=== PATIENT | female | born 1950 | race Caucasian/White ===

== ENCOUNTER 2023-06-01 19:13 | Emergency (ER) | payer MEDICARE, OTHER, SELFPAY ==
[2023-06-01 19:18] VITALS: BP 140/75; BP 155/78; PULSE 75; PULSE 84; RESP 18; TEMP 36.5; O2SAT 100; BMI 28.1
--- NOTE | 2023-06-01 19:20 | PC.NURSE ---
Addendum entered by Giacomo Wagoner 06/01/23 22:30: pt denied si/hi. pt reported accidental incident. Original Note: pt arrived via ems states was carrying dishes tripped and cut R. wrist with broken glass. bleeding controlled by ems with bp cuff; on wrist approx 8-10 mins per ems. cuff removed by Dr. Mays upon arrival to assess cut. blood flow/color/warmth return to R. hand. pt denied pain/numbness/tingling. pt medicated per oct. labs drawn. vss. NSR on monitor [address] Mays to bedside for suture 1934; injected site with lidocaine to numb. pt tolerated procedure well. +pulse/color return to normal/ROM. cap <2 secs. site cleaned with gauze and sterile water/abd pad applied/dorota wrap bandage. vss. nsr on monitor. pt denies pain/dizziness. awaiting repeat hgb at 0130 per order.
--- NOTE | 2023-06-01 19:32 | ED_ITS ---
HPI - Wound/Laceration General Chief Complaint: Wound/Laceration Stated Complaint: accidental lac to R wrist while doing dishes Time Seen by Provider: 06/01/23 19:17 Source: patient and family Mode of arrival: EMS Limitations: no limitations History of Present Illness HPI narrative: no PMH not on thinners Tdap is UTD was walking carrying glass dish fell and landed on broken dish had significant bleeding at home where RN neighbor had to hold pressure and EMS could only control bleed with BP tourniquet - blood was pulsatile and spurting. has tingling in left little finger Onset (ago): minute(s) (just prior to arrival ) Location: other (left lateral wrist anterior over ulnar artery distribution) Place: home Patient tetanus UTD: Yes Context: accidental Associated symptoms: pain Treatments prior to arrival: bandage and tourniquet Related Data Previous Rx's Medication Instructions Recorded cephalexin 500 mg capsule 500 mg PO QID 7 days #28 caps 06/02/23 Allergies Allergy/AdvReac Type Severity Reaction Status Date / Time No Known Allergies Allergy Verified 06/01/23 19:28 Review of Systems 2 Review of Systems: Constitutional : No Fever, No Chills, Cardiovascular : No Chest Pain, No SOB Respiratory : No Dyspnea Gastrointestinal : No abdominal pain Musculoskeletal : No Joint Swelling Skin : No rash, positive skin laceration Neuro : No Weakness, No Numbness Psych : No SI/HI PMFSH Past Medical History Attestation statement: The following information was validated with the patient. Medical History No pertinent past medical history Social History Social History (Updated 06/01/23 @ 21:23 by Maddi Mays DO) Patient Tobacco Use Status: Never used Tobacco Smoked in Last 30 Days: No Advance Directives: No Advance Directives Information Provided: Yes Physical Exam 2 Vital Signs: Vital Signs: Last Vital Signs Temp 97.9 F 06/01/23 21:52 Pulse 77 06/01/23 23:39 Resp 16 06/01/23 23:39 BP 114/55 L 06/01/23 23:39 Pulse Ox 99 06/01/23 23:39 O2 Del Method Room Air 06/01/23 23:39 BMI result Body Mass Index 28.1 Appearance: Alert. Oriented X3. anxious mild acute distress. Eyes: Pupils equal, round and reactive to light. ENT: Pharynx normal. Neck: Normal inspection. Neck supple. CVS: Normal heart rate and rhythm. Pulses normal. Respiratory: No respiratory distress. Breath sounds normal. Abdomen: Soft and non-tender. Skin: Skin warm and dry. Normal skin color. Normal skin turgor. Extremities: R wrist 6cm laceration down to subq - pulsatile bleed proximally and brisk ooze distally I can see the muscular artery or at least a branch that is spurting blood, I performed an Prakash test to see if radial artery supplied the hand and it did with full BCR of all digits thumb through 5th digit. 5th finger has diminished sensation on finger, normal ROM Neuro: Oriented X 3. No motor deficit. can feel finger but feels tingling in lateral 5th finger Course Course Course Narrative: BCR in all digits warm and well perfused no bleeding on exam Medications Administered Discontinued Medications Generic Name Dose Route Start Last Admin Trade Name Freq PRN Reason Stop Dose Admin Acetaminophen 650 mg 06/02/23 00:56 06/02/23 01:20 Acetaminophen 325 Mg Tablet PO 06/02/23 00:57 650 mg ONCE ONE Administration Fentanyl 50 mcg 06/01/23 19:28 06/01/23 19:43 Fentanyl Citrate/Pf 100 Mcg/2 Ml Vial IVPUSH 06/01/23 19:29 50 mcg ONCE ONE Administration Protocol Sodium Chloride 1,000 mls @ 999 mls/hr 06/01/23 19:30 06/01/23 20:51 Ns IV 06/01/23 20:30 Infused .Q1H1M DORA Infusion Cefazolin Sodium 1 gm/ Sodium 50 mls @ 100 mls/hr 06/01/23 23:19 06/02/23 00:31 Chloride IV 06/01/23 23:48 Infused ONCE ONE Infusion Ondansetron HCl 4 mg 06/01/23 19:28 06/01/23 19:43 Ondansetron Hcl 4 Mg/2 Ml Vial IVPUSH 06/01/23 19:29 4 mg ONCE ONE Administration Medical Decision Making Medical Decision Making [facility] Narrative: 72 yo female with significant arterial bleeding R arm post fall - concern for ulnar artery or branch already UTD on Tdap will consult vascular but anticipate ED repair after Praaksh test she notes she has numbness in L 5th finger. Will keep close eye on tourniquet time EMS time was 10 min. Differential Diagnosis Differential Diagnoses: The differential diagnosis associated with the presentation includes ulnar artery laceration or branch Admission/Observation Consideration of admission/observation: Escalation of care including admission/observation considered observe repeat CBC, neuro checks. Consult Healthcare Provider Management of the patient was discussed with: Appellate Court Judge (vascular surgery tie off ulnar artery if radial artery functions 3- monofilament) Lab Data MDM Lab Attestation statement: I reviewed the patient's lab results. H/H stable 06/02/23 01:22 06/01/23 19:35 Labs: Lab Results 06/01/23 06/02/23 Range/Units 19:35 01:22 WBC 6.5 6.4 (4.8-10.8) X10*3/uL RBC 3.55 L 3.48 L (4.20-5.50) X10*6/uL Hgb 11.8 L 11.5 L (12.0-16.0) g/dl Hct 35.1 L 34.1 L (37.0-47.0) % MCV 98.9 H 98.0 (80.0-98.0) fL MCH 33.2 H 33.0 (27.0-33.0) pg MCHC 33.6 33.7 (31.0-35.0) g/dl RDW 13.1 13.2 (11.0-16.0) % Plt Count 253 233 (160-400) X10*3/uL MPV 8.9 L 8.8 L (9.4-12.3) fL Immature Gran % (Auto) 0.3 0.5 H (0.0-0.4) % Neut % (Auto) 41.7 L 67.7 (45-73) % Lymph % (Auto) 42.9 H 22.7 (20-40) % Dawes % (Auto) 8.9 6.9 (2-11) % Eos % (Auto) 5.4 H 1.6 (0-4) % Baso % (Auto) 0.8 0.6 (0-2) % Lymph # (Auto) 2.8 1.5 (1.2-4.9) X10*3/uL Dawes # (Auto) 0.6 0.4 (0.1-1.2) X10*3/uL Eos # (Auto) 0.4 0.1 (0.0-0.4) X10*3/uL Baso # (Auto) 0.1 0.0 (0.0-0.2) X10*3/uL Abs Immat Gran (auto) 0.02 0.03 (0.00-0.03) X10*3/uL Absolute Neuts (auto) 2.7 4.3 (2.0-8.3) x10*3/uL Absolute Nucleated RBC 0.000 0.000 (0.0-0.012) X10*3/uL Nucleated RBC % (auto) 0.0 0.0 (0.0-0.2) /100WBC PT 11.0 L (11.1-13.3) SEC INR 0.9 (0.9-1.1) Sodium 139 (135-145) mmol/L Potassium 3.5 (3.3-5.1) mmol/L Chloride 100 (96-108) mmol/L Carbon Dioxide 25 (22-29) mmol/L Anion Gap 18 (12-20) BUN 7 L (9-16) mg/dL Creatinine 0.60 (0.5-1.4) mg/dL Estim Creat Clear Calc 83.6 Estimated GFR > 60 Random Glucose 100 (60-115) mg/dL Calcium 9.1 (8.4-10.2) mg/dL Blood Type A Positive Antibody Screen NEGATIVE Independent Historian Clinical information obtained from an independent historian. History obtained from or confirmed by: Spouse and EMS Prescription Management I considered prescription management with: Antibiotic Procedures Laceration Laceration 1: Site: upper extremity Side (If applicable): right Size (cm): 6 Description: irregular Depth: involves muscle layer (down to artery and subq) Local Anesthetic: lidocaine 1% Amount of anesthesia used (mL): 3 Pre-repair: wound explored Skin layer closed with: nylon Size (cm): 4-0 Number of sutures: 5 Technique: simple, interrupted Subcutaneous layer closed with: other (artery tied off x 2 distal and prox end with 3-0 monofilament) Size: 3-0 Number of sutures: 3 Critical Care Time Critical Care Time Critical Care Time: Yes Total Critical Care Time: 60 Attestation: acute bedside management of arterial bleed with potential for loss of limb and loss of life threatening blood loss. I attest to this time spent taking care of the patient Discharge Plan Discharge Clinical Impression: Laceration Laceration of ulnar artery Qualifiers: Encounter type: initial encounter Laterality: right Qualified Code(s): S55.011A - Laceration of ulnar artery at forearm level, right arm, initial encounter Patient Disposition: Still a Patient Instructions: Laceration (ED) Additional Instructions: an artery needed to be tied off due to laceration of artery - these sutures will remain in place we had to tie it off on 2 ends but you have your radial artery to supply your hand. you may have had an injury to a nerve that will take time to recover. I want you to follow up with our vascular surgeon Dr. Lei call his office Saturday for appointment follow up in 1 to 2 weeks. you should not get any radial artery sticks in your right wrist such as arterial blood gas or cardiac catheterization in the future. take a probiotic while on antibiotics. sutures come out in 10 days. keep clean dry and covered. I would not get it wet for 48 hours and try to avoid soaking it at all. given the injury for the first 4 days keep a bulky dressing in place to protect it and cover with dorota wrap. please limit movements to protect the sutures. RETURN FOR COLD BLUE PAINFUL HAND, REDNESS, YELLOW DRAINAGE, STREAKING REDNESS UP ARM, FEVERS, WEAKNESS OR ANY OTHER CONCERNS. On a cephalosporin?antibiotic, softer bowel movements are to be expected. Call your provider if you move your bowels more than 4 times a day, your bowel movements are almost all liquid, or you get a rash.?? Prescriptions: New cephalexin 500 mg capsule 500 mg PO QID 7 Days Qty: 28 0RF Referrals: Kalen Lei MD [Physician] - (call Saturday for appointment)
[2023-06-01 19:41] LABS: MANUAL DIFF FLAG NO
[2023-06-01 19:43] VITALS: BP 153/81; PULSE 81; RESP 16; O2SAT 96
[2023-06-01] MEDS: fentaNYL citrate/PF 100 MCG/2 ML VIAL 50 MCG IVPUSH (19:43)
[2023-06-01] MEDS: 0.9 % Sodium Chloride 1,000 ML 999 ML IV (19:43)
[2023-06-01] MEDS: ondansetron HCL 4 MG/2 ML VIAL IVPUSH (19:43)
[2023-06-01 19:47] LABS: Basophils Absolute Auto 0.1 X10*3/uL (0.0-0.2); Basophils Percent Auto 0.8 % (0-2); Eosinophils Absolute Auto 0.4 X10*3/uL (0.0-0.4); Eosinophils Percent Auto 5.4 % (0-4); Hematocrit 35.1 % (37.0-47.0); Hemoglobin 11.8 g/dl (12.0-16.0); Imm Gran Abs Auto 0.02 X10*3/uL (0.00-0.03); Imm Gran Pct Auto 0.3 % (0.0-0.4); Lymphocytes Absolute Auto 2.8 X10*3/uL (1.2-4.9); Lymphocytes Percent Auto 42.9 % (20-40); Mean Corpuscular HGB Conc 33.6 g/dl (31.0-35.0); Mean Corpuscular Hemoglobin 33.2 pg (27.0-33.0); Mean Corpuscular Volume 98.9 fL (80.0-98.0); Mean Platelet Volume 8.9 fL (9.4-12.3); Monocytes Absolute Auto 0.6 X10*3/uL (0.1-1.2); Monocytes Percent Auto 8.9 % (2-11); Neutrophils Absolute Auto 2.7 x10*3/uL (2.0-8.3); Neutrophils Percent Auto 41.7 % (45-73); Platelet Count 253 X10*3/uL (160-400); Red Blood Count 3.55 X10*6/uL (4.20-5.50); Red Cell Distribution Width 13.1 % (11.0-16.0); White Blood Count 6.5 X10*3/uL (4.8-10.8)
[2023-06-01 19:54] LABS: Anion Gap 18 (12-20); Blood Urea Nitrogen 7 mg/dL (9-16); Calcium 9.1 mg/dL (8.4-10.2); Carbon Dioxide 25 mmol/L (22-29); Chloride 100 mmol/L (96-108); Creatinine Clr Calc Pharmacy 83.6; Estimated Glomerular Filt Rate > 60; Glucose Random 100 mg/dL (60-115); Potassium 3.5 mmol/L (3.3-5.1); Sodium 139 mmol/L (135-145)
[2023-06-01 19:57] VITALS: BP 149/78; PULSE 82; RESP 14; O2SAT 97
[2023-06-01 19:59] LABS: INTERNATIONAL NORM RATIO 0.9 (0.9-1.1)
[2023-06-01 21:52] VITALS: BP 111/57; PULSE 79; RESP 14; TEMP 36.6; O2SAT 93
[2023-06-01 21:53] VITALS: PULSE 80; RESP 16; O2SAT 100
--- NOTE | 2023-06-01 22:28 | PC.NURSE ---
Pt aox4 resting at the bedside. No apparent distress noted. Reports numbness sensation to the fifth digit of the right hand. No pain. Able to move fingers with no difficulty. Skin warm pink and dry. cap <2 sec. Pt aware of plan.
--- NOTE | 2023-06-01 23:02 | PC.NURSE ---
+ Pulse check to the right hand. Well perfused, + cap refill.
[2023-06-01 23:39] VITALS: BP 114/55; PULSE 77; RESP 16; O2SAT 99
[2023-06-02] MEDS: Acetaminophen 325 MG TABLET 650 MG PO (01:20)
--- NOTE | 2023-06-02 01:29 | PC.NURSE ---
Pt aox4 resting at the bedside. Swelling noted to the right hand. Davi wrap re-wrapped to pts comfort. Dressing in place clean and dry, no blood noted. Radial pulse present, cap refill <2 sec. Skin warm pink and dry. Pt able to move all fingers and extremities. Continues to report fifth digit of right hand numbness. Pain 4/10. Medicated as ordered. Lab drawn and sent. Pt aware of plan of care.
[2023-06-02 01:31] LABS: MANUAL DIFF FLAG NO
[2023-06-02 01:32] LABS: Basophils Percent Auto 0.6 % (0-2); Eosinophils Absolute Auto 0.1 X10*3/uL (0.0-0.4); Eosinophils Percent Auto 1.6 % (0-4); Hematocrit 34.1 % (37.0-47.0); Hemoglobin 11.5 g/dl (12.0-16.0); Imm Gran Abs Auto 0.03 X10*3/uL (0.00-0.03); Imm Gran Pct Auto 0.5 % (0.0-0.4); Lymphocytes Absolute Auto 1.5 X10*3/uL (1.2-4.9); Lymphocytes Percent Auto 22.7 % (20-40); Mean Corpuscular HGB Conc 33.7 g/dl (31.0-35.0); Mean Platelet Volume 8.8 fL (9.4-12.3); Monocytes Absolute Auto 0.4 X10*3/uL (0.1-1.2); Monocytes Percent Auto 6.9 % (2-11); Neutrophils Absolute Auto 4.3 x10*3/uL (2.0-8.3); Neutrophils Percent Auto 67.7 % (45-73); Platelet Count 233 X10*3/uL (160-400); Red Blood Count 3.48 X10*6/uL (4.20-5.50); Red Cell Distribution Width 13.2 % (11.0-16.0); White Blood Count 6.4 X10*3/uL (4.8-10.8)
[2023-06-02 02:25] VITALS: BP 172/86; PULSE 94; RESP 17; TEMP 36.9; O2SAT 97
--- NOTE | 2023-06-02 03:06 | PC.NURSE ---
Woody text received from Dr. Mays for pt to be discharged with a loose cockup wrist splint to protect and support the hand and wrist as pt moves the right hand too much.
[2023-06-02 05:51] VITALS: BP 160/71; PULSE 83; RESP 14; TEMP 36.7; O2SAT 98
== END 2023-06-02 06:22 | disposition home or self-care (01) ==
PROVIDERS: Emergency Provider Emergency Medicine; PCP Family Medicine
DX: S61.511A Laceration without foreign body of right wrist, initial encounter (principal); W01.110A Fall on same level from slipping, tripping and stumbling with subsequent striking against sharp glass, initial encounter; Y93.89 Activity, other specified; Y92.009 Unspecified place in unspecified non-institutional (private) residence as the place of occurrence of the external cause; Y99.9 Unspecified external cause status
CPT/HCPCS: 12042; 36415; 80048; 85025; 85610; 86850; 86900; 86901; 96361; 96365; 96375; 99285; J0690; J2405; J3010

== ENCOUNTER 2023-06-13 14:08 | Outpatient (AMB) | payer MEDICARE, OTHER, SELFPAY ==
--- NOTE | 2023-06-13 14:17 | A.OFFVIS_ITS ---
Intake Vital Signs 06/13/23 14:18 Height 5 ft 4 in Weight 167 lb BMI 28.7 Intake Visit Reasons: Podiatric Physician- lac to R wrist numbness Intake Note: Rosa mccain 73 year old female presents today for an ER follow up of right wrist laceration, DOI 06/01/23. Patient reports that she was walking carrying a glass dish when she fell, landing on the broken dish. Presented to [facility] by ambulance where sutures were applied and referred to orthopedic. Currently having soreness as well as numbness and tingling in her 5th and 4th digit. She is requesting to have her left hand checked out, stating bruising in her hand. Allergies No Known Allergies Allergy (Verified 06/13/23 14:23) HPI Podiatric Physician- lac to R wrist numbness HPI Details 73-year-old female who presents to the [facility] today for an ER follow-up of right wrist injury s/p falling and landing on a broken dish while carrying a glass dish, 06/01/23. She was seen at ED by ambulance where sutures were applied and she was referred to our office. She states she has soreness, numbness and tingling in her 4th and 5th digit. She also c/o occasional electrical sensation in her wrist which radiates to her hand. She has a history of Dupuytren?s disease. [facility] Medical History (Updated 06/14/23 @ 15:45 by Patrice Steinberg PA-C) No pertinent past medical history Surgical History (Updated 06/13/23 @ 14:20 by DIONNE Triana) History of left hip replacement Social History (Updated 06/13/23 @ 14:20 by DIONNE Triana) Patient Tobacco Use Status: Never used Tobacco Current occupational status: retired Current occupation: right hand dominant Review of Systems Const All systems reviewed & are unremarkable except as noted in HPI and below Physical Exam Vital Signs: BMI result Body Mass Index 28.7 Const General: cooperative, healthy appearing, comfortable, no acute distress, well developed and alert Orientation/consciousness: patient oriented x3 HEENT Head: Yes normal to inspection, Yes normocephalic and Yes atraumatic Eyes General: appearance normal, both eyes and all related structures Resp Effort & Inspection: normal respiratory effort and able to speak in complete sentences Cardio Rate: regular rate Peripheral pulses: Peripheral pulses 2+ throughout GI Palpation (GI): Soft to palpation Skin Lesions: no lesions Rashes: no rashes Neuro General: patient oriented x3 Extrem Other: Right wrist: Normal to inspection. She does have a laceration with sutures intact over the ulnar side of wrist approximately 2 inches long. She does have good sensation over the volar aspect of the forearm. She does have decreased sensation in the ulnar side of the hand which extends into the 5th and 4th metacarpal. Full extension and flexion of the digits. There is evidence of Dupuytren?s in line with the ring finger. No flexion contracture noted. 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 I did reassure her that the nerve does appear to be intact given her motor function. It appears she has also lacerated the superficial sensory brance of the ulnar nerve which has caused some sensory deficits but it is unclear if this is long term care social worker, however she does have some light sensation intact so it is reassuring that her symptoms may resolve. This can take up to 3-4 months, at least. She will see me back in 3 weeks for a follow-up, sooner if needed. Patient Instructions: Scribed for Patrice Steinberg PA-C, by Lenny Prado biomedical specialist, on 06/13/2023 at 2:15 PM EST. I, Patrice Steinberg PA-C, have personally reviewed and agree with the information entered by the scribe. 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
[2023-06-13 14:18] VITALS: BMI 28.7
== END 2023-06-13 14:57 | disposition home or self-care (01) ==
PROVIDERS: PCP Family Medicine; Visit Provider Physician Assistant
DX: G56.21 Lesion of ulnar nerve, right upper limb (principal)
CPT/HCPCS: 99203

== ENCOUNTER → 2023-06-13 14:08 | Outpatient (BNVA) | payer MEDICARE, OTHER, SELFPAY | PROVIDERS: PCP Family Medicine; Visit Provider Physician Assistant ==

== ENCOUNTER 2023-07-16 14:24 | Outpatient (AMB) | payer MEDICARE, OTHER, SELFPAY ==
--- NOTE | 2023-07-16 14:31 | A.OFFVIS_ITS ---
Intake Vital Signs 07/16/23 14:41 Height 5 ft 4 in Weight 167 lb BMI 28.7 Intake Visit Reasons: OV-lac to R wrist numbness Intake Note: Rosa a 73 year old female presents today for a follow up of right wrist laceration, DOI 06/01/23. Patient previously seen by TM s/p fall causing her to land on broken glass. She continues to have numbness in her 5th and 4th digit that radiates down the ulnar aspect of palm. She also has concerns of left hand pain and swelling at base of her 2nd and 3rd MCP. Allergies No Known Allergies Allergy (Verified 07/16/23 14:41) HPI OV-lac to R wrist numbness HPI Details The patient is a 73-year-old ciihl-tznf-bhthamnd woman who is seen today with her . On 06/01/2023 she fell onto a broken plate and glass sustaining a laceration to the ulnar aspect of her right distal forearm. There was reportedly rather extensive bleeding, and they ended up tying off the ulnar artery in the emergency department. She has numbness in the ulnar aspect of her hand and does appreciate some clumsiness and weakness in her right hand since the injury. [facility] Medical History (Updated 07/16/23 @ 15:51 by Luzma Glover MD) No pertinent past medical history Surgical History History of left hip replacement Social History Patient Tobacco Use Status: Never used Tobacco Current occupational status: retired Current occupation: right hand dominant Physical Exam Vital Signs: BMI result Body Mass Index 28.7 Const General: cooperative, healthy appearing and no acute distress Orientation/consciousness: oriented to person and oriented to place HEENT Head: Yes normocephalic and Yes atraumatic Eyes EOM: EOMs intact bilaterally Resp Effort & Inspection: normal respiratory effort and able to speak in complete sentences Cardio Jugular venous distension: no JVD Skin General skin exam: turgor normal Rashes: no rashes Neuro General: oriented to person and oriented to place Extrem Other: Evaluation of right Upper Extremity: She has a 2 - 3 cm oblique laceration over the volar ulnar aspect of the patient's right wrist. The laceration is well healed. Interestingly, a Tinel's sign elicited in this area causes an electrical shock sensation that feels like it runs out to the tips of the small and ring fingers. Neuro: Median, radial nerves motor and sensory intact. She has dense numbness in the right small finger, ulnar aspect of the ring finger, and the hypothenar aspect of the palm. She does have a normal sensation in the dorsal ulnar aspect of the right hand in the distribution of the dorsal cutaneous branch of the ulnar nerve. With regards to motor function, she really does not have any finger abduction or adduction associated with the ulnar nerve. Particularly when looking at the middle ring and small fingers. She has a positive Froment sign on the right and a negative Froment sign on the left. She does have full active extension of all digits and can bring all digits closed to a fist. She has normal sensation in the median nerve distribution and superficial radial nerve distribution Good median nerve intrinsic function, including APB muscle belly firing Vascular: She has good cap refill to the tips of all digits including the small finger.. However, the small finger is definitely cooler than the index middle and ring fingers which to me felt warm. ROM: Can bring fingers closed to a fist and back out to full or nearly full extension. . Psych Appearance: grossly normal Affect: normal affect Attitude: cooperative Assessment & Plan Assessment & Plan (1) Laceration of ulnar nerve of right upper extremity at forearm level: Code(s): S54.01XA - Injury of ulnar nerve at forearm level, right arm, initial encounter Plan Assessment and plan: 1. Right ulnar nerve laceration approximately 2-3 cm proximal to the distal wrist crease Date of injury 06/01/2023 She fell onto a broken plate or broken glass And also sustained an ulnar artery laceration, and the ulnar artery was reportedly tied off in the ED. Dense numbness in the ulnar nerve distribution to the hand. I do not appreciate any intact distal ulnar motor function to the hand. The dorsal cutaneous branch of the ulnar nerve sensation does appear to be intact I educated the patient and her about this injury. We did discuss operative and non operative treatment options at length. There risks and benefits to both. At this point our options are pretty much to either live with the loss of ulnar sensory and motor function, or to attempt a reconstruction using a conduit. She is 73, and repair through the conduit is less certain than perhaps in a younger person. In addition it has been at least 6 weeks since the injury, and she is likely to have at least a 2 cm gap at this point, after debriding back from the neuroma to normal nerve proximally. After surgery we would need to immobilize her wrist for at least 6 weeks, and she would have limited use of her hand for perhaps another month after that. They do understand that I think it is extremely unlikely that they would have any chance of nerve recovery without surgery. With surgery there is at least a chance that she might regain some recovery of sensory and/or motor function, but just how much she might get back is never known until sometime after surgery. I also explained that I do not think that her sensory or motor loss would be getting any worse without surgery, and that she already has her deficit and can appreciate pretty readily what she can and cannot do with her hand. They were thankful for the information and would like some time to think about these options. I am giving them an appointment next week to come and talk to me again. Please note that greater than 45 minutes was spent with this patient performing the exam, gathering the history, formulating possible treatment options and discussing these at length with our patient, and documenting the visit. Coding Level of Care Code New Pt Level 4 (27873) Diagnoses Laceration of ulnar nerve of right upper extremity at forearm level S54.01XA
[2023-07-16 14:41] VITALS: BMI 28.7
== END 2023-07-16 15:30 | disposition home or self-care (01) ==
PROVIDERS: PCP Family Medicine; Visit Provider Orthopaedic Surgery
DX: S54.01XA Injury of ulnar nerve at forearm level, right arm, initial encounter (principal)
CPT/HCPCS: 99204

== ENCOUNTER → 2023-07-16 14:24 | Outpatient (BNVA) | payer MEDICARE, OTHER, SELFPAY | PROVIDERS: PCP Family Medicine; Visit Provider Orthopaedic Surgery | DX: S54.01XD Injury of ulnar nerve at forearm level, right arm, subsequent encounter (principal) | CPT/HCPCS: 99202 ==